=== PATIENT | male | born 1950 | race American Indian/Alaskan Native ===

== ENCOUNTER 2017-05-07 14:46 | Observation (INO) | payer MEDICARE ==
[2017-05-07 15:16] VITALS: BMI 28.7
--- NOTE | 2017-05-07 15:20 | C.PDOC ---
History Of Present Illness 66 year old male was brought to the ED by EMS after being found in [facility] with EtOH on breath. Patient denies any physical complaints, suicidal or homicidal ideations. Chief Complaint (Nursing): Substance Abuse History Per: EMS History/Exam Limitations: no limitations Onset/Duration Of Symptoms: Hrs Current Symptoms Are (Timing): Still Present Suicide/Self Injury Attempted (Context): None Severity: None Pain Scale Rating Of: 0 Associated Symptoms: denies: Suicidal Thoughts, Suicidal Plan Involuntary Hold By: None Recent travel outside of the [place]: No Additional History Per: Patient Past Medical History Reviewed: Historical Data, Nursing Documentation, Vital Signs Vital Signs: Last Vital Signs Temp 97.8 F 05/07/17 17:39 Pulse 104 H 05/07/17 17:39 Resp 18 05/07/17 17:39 BP 145/93 H 05/07/17 17:39 Pulse Ox 96 05/07/17 17:47 - Medical History PMH: HTN Surgical History: Denies: Pacemaker - [facility] Procedures ANGIOPLASTY OF OTHER NON-CORONARY VESSEL(S) (12/01/13) ATHERECTOMY OF OTHER NON-CORONARY VESSEL(S) (12/01/13) PROCEDURE ON SINGLE VESSEL (12/01/13) Family History: States: Unknown Family Hx - Social History Hx Alcohol Use: Yes Hx Substance Use: No Review Of Systems Constitutional: Positive for: Other (Blood sugar reading was 29 in the ED ). Negative for: Fever, Chills Cardiovascular: Negative for: Chest Pain, Palpitations Respiratory: Negative for: Cough, Shortness of Breath Gastrointestinal: Negative for: Nausea, Vomiting, Abdominal Pain, Diarrhea Psych: Negative for: Suicidal ideation Physical Exam - Physical Exam Appears: Non-toxic, No Acute Distress Skin: Warm, Dry Head: Atraumatic, Normacephalic Eye(s): bilateral: Normal Inspection, PERRL, EOMI Oral Mucosa: Moist Neck: Supple Chest: Symmetrical, No Deformity Cardiovascular: Rhythm Regular Respiratory: Normal Breath Sounds, No Rhonchi, No Wheezing Gastrointestinal/Abdominal: Soft, No Tenderness, No Distention, No Guarding, No Rebound Extremity: Normal ROM, No Tenderness, No Swelling Neurological/Psych: Oriented x3 (Patient was awake, alert, and answering questions appropriately. ), Normal Speech, Normal Cognition, Normal Motor, Normal Sensation Gait: Steady ED Course And Treatment - Laboratory Results Result Diagrams: 05/07/17 15:45 05/07/17 16:27 O2 Sat by Pulse Oximetry: 96 (room air ) Pulse Ox Interpretation: Normal Progress Note: After eating and drinking, repeated blood sugar reading 15 minutes later was 42 (inital reading was 29). PAtient was then given an Amp of D50. glucose on CMP was 176. The third repeat went down to 52. On re-exam, the patient remains awake, A& Ox 3. Ambulatory in the ED with steady gait, This is refractory hypoglycemia and patient was admitted to Dr. Narvaez. Disposition - Disposition Disposition: HOSPITALIZED Disposition Time: 17:47 Condition: FAIR - Clinical Impression Clinical Impression: Hypoglycemia - Scribe Statement The provider has reviewed the documentation as recorded by the Scribe Elizabeth Waddell All medical record entries made by the Scribe were at my direction and personally dictated by me. I have reviewed the chart and agree that the record accurately reflects my personal performance of the history, physical exam, medical decision making, and the department course for this patient. I have also personally directed, reviewed, and agree with the discharge instructions and disposition.
[2017-05-07] MEDS ORDERED: Dextrose 50% SYRINGE Inj (50 ml) IVP STA ×2 (15:30→17:49)
[2017-05-07] MEDS ORDERED: Dextrose 50% SYRINGE Inj (50 ml) ONE ×3 (15:36→21:50)
[2017-05-07 15:52] LABS: BASO # 0.1 K/uL (0.0-0.2); BASO % 1.1 % (0.0-2.0); EOS % 0.8 % (0.0-4.0); HEMATOCRIT 50.5 % (35.0-51.0); LYMPH # 2.6 K/uL (1.0-4.3); LYMPH % 48.1 % (20.0-40.0); MEAN CELL VOLUME 100.9 fL (80.0-94.0); MEAN CORPUSCULAR HEMOGLOBIN 32.8 pg (27.0-31.0); MEAN CORPUSCULAR HGB CONC 32.5 g/dL (33.0-37.0); MEAN PLATELET VOLUME 7.8 fL (7.2-11.7); MONO # 0.2 K/uL (0.0-0.8); MONO % 4.4 % (0.0-10.0); NRBC % 0.1 % (0.0-2.0); RED CELL DISTRIBUTION WIDTH 14.7 % (11.5-14.5); WHITE BLOOD COUNT 5.4 K/uL (4.8-10.8)
[2017-05-07 16:44] LABS: POTASSIUM 3.2 mmol/L (3.6-5.2)
[2017-05-07 16:46] LABS: ALB/GLOB RATIO 1.2 (1.0-2.1); BILIRUBIN,TOTAL 0.8 mg/dL (0.2-1.3); CALCIUM 9.1 mg/dl (8.6-10.4); TOTAL PROTEIN 7.4 g/dL (6.3-8.3)
[2017-05-07] MEDS ORDERED: Potassium Chloride 20 mEq ER Tab PO STA (18:39)
[2017-05-07] MEDS ORDERED: Potassium Chloride 20 mEq ER Tab PO ONE (18:42)
[2017-05-07] MEDS ORDERED: Dextrose 50% SYRINGE Inj (50 ml) IV STA (21:51)
[2017-05-07] MEDS ORDERED: Lidocaine 5% Patch TD PRN (22:24)
[2017-05-07] MEDS ORDERED: Naproxen 275 mg Tab PO PRN (22:28)
[2017-05-08 07:37] LABS: BASO # 0.1 K/uL (0.0-0.2); BASO % 1.3 % (0.0-2.0); EOS # 0.1 K/uL (0.0-0.7); EOS % 1.3 % (0.0-4.0); HEMATOCRIT 41.2 % (35.0-51.0); LYMPH % 37.6 % (20.0-40.0); MEAN CELL VOLUME 99.5 fL (80.0-94.0); MEAN CORPUSCULAR HEMOGLOBIN 31.6 pg (27.0-31.0); MEAN CORPUSCULAR HGB CONC 31.8 g/dL (33.0-37.0); MEAN PLATELET VOLUME 8.7 fL (7.2-11.7); MONO # 0.7 K/uL (0.0-0.8); MONO % 13.8 % (0.0-10.0); NRBC % 0.1 % (0.0-2.0); RED CELL DISTRIBUTION WIDTH 14.5 % (11.5-14.5); WHITE BLOOD COUNT 5.4 K/uL (4.8-10.8)
[2017-05-08 08:04] LABS: CHLORIDE 101 mmol/L (98-107); POTASSIUM 4.3 mmol/L (3.6-5.2); SODIUM 137 mmol/L (132-148)
[2017-05-08 08:06] LABS: ALB/GLOB RATIO 1.1 (1.0-2.1); AST/SGOT 31 U/L (17-59); BILIRUBIN,TOTAL 1.2 mg/dL (0.2-1.3); CARBON DIOXIDE 24 mmol/L (22-30); GFR AFRICAN-AMERICAN > 60; TOTAL PROTEIN 6.7 g/dL (6.3-8.3)
[2017-05-08 08:07] LABS: ALKALINE PHOSPHATASE 52 U/L (38-126); ALT/SGPT 34 U/L (21-72); BLOOD UREA NITROGEN 12 mg/dL (9-20); CALCIUM 9.4 mg/dl (8.6-10.4); GLUCOSE,RANDOM 142 mg/dL (75-110)
[2017-05-08] MEDS: Enoxaparin 40 mg Syringe SC SCH (11:05)
[2017-05-08] MEDS: (Novolog) Insulin Aspart, Recombinant 100 u/ml 10 ml vial SC SCH ×4 (11:05→21:42)
--- NOTE | 2017-05-08 14:07 | CP.PCM.PN ---
Subjective - Date & Time of Evaluation Date of Evaluation: 05/08/17 Time of Evaluation: 07:15 - Subjective Subjective: Medicine Note- Dr. Narvaez's service Patient was seen and examined at bedside. Patient reports he called the ambulance because he was feeling dizzy and unbalanced. Patient reports that he drank about 5 beers, approximately 12 oz cans, the night he came in, which he states is about how much he normally drinks. He says that he previously drank a lot more, but was unable to give an estimated amount. He says that if he stops drinking, he begins to feel anxious and shaky. Patient reports he is compliant with his medications. No events overnight per nursing PMHx of Gout , Htn, DM Objective - Vital Signs/Intake and Output Vital Signs (last 24 hours): Temp Pulse Resp BP Pulse Ox 99 F 89 20 145/90 97 05/08/17 07:00 05/08/17 07:00 05/08/17 07:00 05/08/17 07:00 05/08/17 07:00 Intake and Output: 05/08/17 05/08/17 06:59 18:59 Output Total 250 Balance -250 - Medications Medications: Current Medications Clonazepam (Klonopin) 2 mg PO DAILY PRN PRN Reason: Anxiety Colchicine (Colocrys) 0.6 mg PO BID PRN PRN Reason: Gout pain Enoxaparin Sodium (Lovenox) 40 mg SC DAILY [facility] Last Admin: 05/08/17 11:05 Dose: 40 mg Dextrose (Dextrose 10% In Water) 1,000 mls @ 80 mls/hr IV .[id number] [facility] Last Admin: 05/08/17 11:05 Dose: Not Given Insulin Aspart (Novolog) 0 unit SC QID [facility] PRN Reason: Protocol Last Admin: 05/08/17 11:05 Dose: Not Given Lidocaine (Lidoderm) 1 ea TD DAILY PRN PRN Reason: Pain, moderate (4-7) Losartan Potassium (Cozaar) 100 mg PO DAILY [facility] Last Admin: 05/08/17 11:05 Dose: 100 mg Naproxen (Anaprox) 275 mg PO Q6 PRN PRN Reason: Pain, Mild (1-3) Zolpidem Tartrate (Ambien) 5 mg PO HS PRN PRN Reason: Insomnia - Labs Labs: 05/08/17 07:28 05/08/17 07:28 - Constitutional Appears: Non-toxic, No Acute Distress - Head Exam Head Exam: ATRAUMATIC, NORMAL INSPECTION, NORMOCEPHALIC - Eye Exam Pupil Exam: NORMAL ACCOMODATION, PERRL - ENT Exam ENT Exam: Mucous Membranes Moist - Respiratory Exam Respiratory Exam: Clear to Ausculation Bilateral, NORMAL BREATHING PATTERN. absent: Prolonged Expiratory Phase, Rales, Rhonchi, Wheezes - Cardiovascular Exam Cardiovascular Exam: REGULAR RHYTHM, +S1, +S2 - GI/Abdominal Exam GI & Abdominal Exam: Soft, Normal Bowel Sounds. absent: Tenderness, Diminished Bowel Sounds, Hernia, Hyperactive Bowel Sounds, Hypoactive Bowel Sounds - Extremities Exam Extremities Exam: Normal Capillary Refill - Neurological Exam Neurological Exam: Alert, Awake, Oriented x3 - Psychiatric Exam Psychiatric exam: Normal Affect, Normal Mood - Skin Skin Exam: Dry, Intact, Normal Color, Warm Assessment and Plan - Assessment and Plan (Free Text) Assessment: Diabetes Mellitus with hypoglycemic episodes Started on D10 @ 80cc/hr RISS Accucheck Hold Metformin ADA Mod CHO diet Alcohol Use Disorder Started on Librium Taper Ativan 1mg IVP Q6h PRN for withdrawal symptoms Multivitamin PO Daily Folic acid 1mg PO Daily Gout Colchicine 0.6mg PO BID PRN Anxiety Klonopin 2mg PO Daily PRN for anxiety Ambien 5mg PO HS PRN for sleep Prophylactic Measure SCDs Lovenox 40mg SC Daily
[2017-05-08] MEDS: Multiple Vitamins Tab PO SCH (14:25)
[2017-05-09] MEDS: (Novolog) Insulin Aspart, Recombinant 100 u/ml 10 ml vial SC SCH ×4 (06:54→21:54)
[2017-05-09 07:47] LABS: BASO # 0.1 K/uL (0.0-0.2); BASO % 1.4 % (0.0-2.0); EOS # 0.1 K/uL (0.0-0.7); EOS % 1.3 % (0.0-4.0); HEMATOCRIT 44.1 % (35.0-51.0); LYMPH # 2.4 K/uL (1.0-4.3); LYMPH % 37.3 % (20.0-40.0); MEAN CELL VOLUME 99.5 fL (80.0-94.0); MEAN CORPUSCULAR HEMOGLOBIN 31.8 pg (27.0-31.0); MEAN CORPUSCULAR HGB CONC 31.9 g/dL (33.0-37.0); MEAN PLATELET VOLUME 8.8 fL (7.2-11.7); MONO # 0.8 K/uL (0.0-0.8); MONO % 12.7 % (0.0-10.0); NRBC % 0.1 % (0.0-2.0); RED CELL DISTRIBUTION WIDTH 14.5 % (11.5-14.5); WHITE BLOOD COUNT 6.4 K/uL (4.8-10.8)
[2017-05-09 08:05] LABS: CHLORIDE 100 mmol/L (98-107)
[2017-05-09 08:06] LABS: POTASSIUM 4.6 mmol/L (3.6-5.2); SODIUM 138 mmol/L (132-148)
[2017-05-09 08:09] LABS: ALB/GLOB RATIO 1.1 (1.0-2.1); ALKALINE PHOSPHATASE 64 U/L (38-126); ALT/SGPT 33 U/L (21-72); AST/SGOT 28 U/L (17-59); BILIRUBIN,TOTAL 1.5 mg/dL (0.2-1.3); BLOOD UREA NITROGEN 11 mg/dL (9-20); CALCIUM 10.2 mg/dl (8.6-10.4); CARBON DIOXIDE 29 mmol/L (22-30); GFR AFRICAN-AMERICAN > 60; GLUCOSE,RANDOM 140 mg/dL (75-110); TOTAL PROTEIN 7.3 g/dL (6.3-8.3)
[2017-05-09] MEDS: Enoxaparin 40 mg Syringe SC SCH (10:53)
[2017-05-09] MEDS: Multiple Vitamins Tab PO SCH (10:53)
[2017-05-10 00:35] VITALS: RESP 20
[2017-05-10] MEDS: (Novolog) Insulin Aspart, Recombinant 100 u/ml 10 ml vial SC SCH ×3 (06:58→17:00)
[2017-05-10 08:55] LABS: BASO # 0.1 K/uL (0.0-0.2); BASO % 0.9 % (0.0-2.0); EOS # 0.1 K/uL (0.0-0.7); EOS % 0.9 % (0.0-4.0); HEMATOCRIT 45.1 % (35.0-51.0); LYMPH # 2.4 K/uL (1.0-4.3); MEAN CELL VOLUME 99.1 fL (80.0-94.0); MEAN CORPUSCULAR HEMOGLOBIN 31.8 pg (27.0-31.0); MEAN CORPUSCULAR HGB CONC 32.1 g/dL (33.0-37.0); MEAN PLATELET VOLUME 9.1 fL (7.2-11.7); MONO # 0.9 K/uL (0.0-0.8); MONO % 12.6 % (0.0-10.0); NRBC % 0.1 % (0.0-2.0); RED CELL DISTRIBUTION WIDTH 14.1 % (11.5-14.5); WHITE BLOOD COUNT 7.4 K/uL (4.8-10.8)
[2017-05-10 09:26] LABS: CHLORIDE 99 mmol/L (98-107); SODIUM 138 mmol/L (132-148)
[2017-05-10 09:27] LABS: POTASSIUM 4.6 mmol/L (3.6-5.2)
[2017-05-10 09:29] LABS: ALB/GLOB RATIO 1.1 (1.0-2.1); ALKALINE PHOSPHATASE 77 U/L (38-126); ALT/SGPT 37 U/L (21-72); AST/SGOT 31 U/L (17-59); BILIRUBIN,TOTAL 1.4 mg/dL (0.2-1.3); BLOOD UREA NITROGEN 12 mg/dL (9-20); CARBON DIOXIDE 28 mmol/L (22-30); GFR AFRICAN-AMERICAN > 60; GLUCOSE,RANDOM 138 mg/dL (75-110); TOTAL PROTEIN 7.5 g/dL (6.3-8.3)
[2017-05-10] MEDS: Enoxaparin 40 mg Syringe SC SCH (09:50)
[2017-05-10] MEDS: Multiple Vitamins Tab PO SCH (09:51)
[2017-05-10 17:15] VITALS: BP 147/86; PULSE 92; TEMP 98.7; O2SAT 99
--- NOTE | 2017-05-10 17:41 | CARD ---
APPROVED REPORT EKG Measurement Heart [id number] VT [id number] <Conclusion> Sinus tachycardia Rightward axis ST & T wave abnormality, consider inferior ischemia Abnormal ECG
== END 2017-05-10 20:31 | disposition home or self-care (01) ==
LOC: C.ER 14:46 → C.9E 17:47 → C.5T 19:57
PROVIDERS: ADMIT Internal Medicine Pulmonary Disease; ATTEND Internal Medicine Pulmonary Disease
DX: E11.649 Type 2 diabetes mellitus with hypoglycemia without coma (principal); F10.239 Alcohol dependence with withdrawal, unspecified; M10.9 Gout, unspecified; F41.9 Anxiety disorder, unspecified; I10 Essential (primary) hypertension
CPT/HCPCS: 36415; 80053; 82948; 83036; 85025; 85027; 93005; 96372; 96374; 96376; 99285; G0378; J1650